=== PATIENT | female | born 1955 | race Two or more races ===

== ENCOUNTER → 2024-10-03 | Outpatient (CLI) | payer OTHER, MEDICAID, SELFPAY ==
--- NOTE | 2024-10-03 14:39 | EKG_ITS ---
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
[2024-10-03 16:02] VITALS: BMI 36.8
[2024-10-03 17:30] LABS: Basophils # (Auto) 0.1 Thou/mm3 (0.0-0.2); Basophils % (Auto) 1 % (0-2.5); Eosinophils # (Auto) 0.4 Thou/mm3 (0.0-0.5); Eosinophils % (Auto) 3 % (0-10); Hematocrit 36.8 % (36.0-46.0); Hemoglobin 10.9 g/dL (12.0-16.0); Immature Granulocytes % (Auto) 1 % (0-0); Immature Granulocytes Auto 0.06 Thou/mm3 (0.00-0.00); Lymphocytes # (Auto) 1.9 Thou/mm3 (1.0-4.8); Lymphocytes % (Auto) 15 % (10-50); Mean Corpuscular HGB Conc 29.6 g/dl (31.0-37.0); Mean Corpuscular Hemoglobin 23.6 pg (25.0-35.0); Mean Corpuscular Volume 80 fL (80-100); Monocytes # (Auto) 1.2 Thou/mm3 (0.0-0.8); Monocytes % (Auto) 10 % (0-12); Neutrophils # (Auto) 9.3 Thou/mm3 (1.8-7.7); Neutrophils % (Auto) 72 % (37-80); Nucleated Red Blood Cell % 0 /100 WBC (0); Platelet Count 362 Thou/mm3 (140-440); RDW Standard Deviation 47.5 fL (36.4-46.3); Red Blood Count 4.61 Miln/mm3 (4.00-5.20)
[2024-10-03 17:36] LABS: Partial Thromboplastin Time 34.7 Seconds (22.0-36.0); Prothrombin Time 10.9 Seconds (9.0-12.2)
[2024-10-03 17:51] LABS: Anion Gap 9 (7-16); BUN/Creatinine Ratio 21 Ratio (12-20); Blood Urea Nitrogen 40 mg/dL (9-23); Calcium 8.8 mg/dL (8.3-10.6); Carbon Dioxide 24.5 mMol/L (20.0-31.0); Chloride 105 mMol/L (98-107); Creatinine (Component) 1.9 mg/dL (0.6-1.3); Estimated Creatinine Clearance 32.3 mL/min (>60); Glucose 122 mg/dL (74-106); Osmolality,Calculated 286 (275-295); Potassium 4.4 mMol/L (3.4-5.1); Sodium 138 mMol/L (136-145); eGFR 28 See Note
== END | disposition home or self-care (01) ==
LOC: SLAB 10-09 06:59
PROVIDERS: PCP Internal Medicine; Referring Provider Internal Medicine Cardiovascular Disease; Visit Provider Internal Medicine Cardiovascular Disease
DX: I25.10 Atherosclerotic heart disease of native coronary artery without angina pectoris (principal)
CPT/HCPCS: 36415; 80048; 85025; 85610; 85730; 93005

== ENCOUNTER 2024-10-04 15:22 | Emergency (ER) | payer OTHER, MEDICAID, SELFPAY ==
[2024-10-04 15:22] VITALS: BMI 37.4
[2024-10-04 15:37] VITALS: BP 167/77; PULSE 81; RESP 19; TEMP 36.8; O2SAT 95; BMI 37.1
--- NOTE | 2024-10-04 15:42 | PD.EDURI ---
Upper Respiratory Inf. RME/HPI General Chief Complaint: Flu Like Symptoms Stated Complaint: FLU SYMPTOMS FOR 4 DAYS Time Seen by Provider: 10/04/24 15:35 Arrival date/time: 10/04/24 15:22 This is a 69-year-old female that comes in with complaints of bodyaches, cough, sore throat, headache, bilateral ears feel sore, and subjective fevers for 3 days. Patient has a history of diabetes, for thyroidism and history of pacemaker placement in the past. Patient reports a productive cough. Related Data Home Medications ?Medication ?Instructions ?Recorded ?Confirmed glipizide 10 mg tablet 10 mg PO BID ##0 12/07/15 05/02/23 nitroglycerin 0.4 mg sublingual 0.4 mg buccal PRN PRN Chest Pain 07/18/21 05/02/23 tablet dapagliflozin propanediol 5 mg 5 mg PO QDAY 04/29/22 05/02/23 tablet (Farxiga) levothyroxine 112 mcg tablet 112 mcg PO QDAY 11/22/22 05/02/23 mirabegron 25 mg tablet,extended 25 mg PO QDAY PRN prn 11/22/22 05/02/23 release 24 hr (Myrbetriq) semaglutide 0.25 mg or 0.5 mg (2 0.5 mg subcut QWEEK 11/22/22 05/02/23 mg/1.5 mL) subcutaneous pen injector (Ozempic) ticagrelor 90 mg tablet (Brilinta) 90 mg PO BID 11/22/22 05/02/23 metformin 1,000 mg tablet 1,000 mg PO BID 05/02/23 05/02/23 sertraline 50 mg tablet 50 mg PO HS 05/02/23 05/02/23 Previous Rx's ?Medication ?Instructions ?Recorded furosemide 20 mg tablet 20 mg PO QDAY #30 tabs 11/25/22 sacubitril 24 mg-valsartan 26 mg 1 tab PO BID #60 tabs 11/25/22 tablet (Entresto) albuterol sulfate 90 mcg/actuation 2 puff inhalation QID #8.5 grams 10/04/24 aerosol inhaler amoxicillin 875 mg-potassium 1 tab PO BID 7 days #14 tabs 10/04/24 clavulanate 125 mg tablet Allergies Allergy/AdvReac Type Severity Reaction Status Date / Time azithromycin Allergy Severe Anaphylaxis Verified 05/02/23 11:21 codeine Allergy Severe HALLUCINATI Verified 10/04/24 15:25 ON hydrocodone Allergy Severe NAUSEA Verified 10/04/24 15:25 morphine Allergy Severe Hallucinati Verified 10/04/24 15:25 ng Review of Systems Review of Systems Systems Reviewed: All systems reviewed, normal except as documented Past Medical History Past Medical History NEUROLOGIC: Negative Neurological Disorders or Seizures CARDIAC: Positive Cardiac Disorders, Cardiac Arrhythmia (BBB), Hypercholesterolemia, Edema, Hypertension and Varicose Veins; Negative Congestive Heart Failure RESPIRATORY: Positive Asthma; Negative Chronic Obstructive Pulmonary Disease (COPD) GASTROINTESTINAL: Positive Gastrointestinal Disorders, Diverticulitis, Hemorrhoids and Obesity GENITOURINARY: Positive Genitourinary Disorders (URINARY INCONTINENCE); Negative Renal Disease REPRODUCTIVE: Positive Previous Pregnancies MUSCULOSKELETAL: Positive Musculoskeletal Disorders and Arthritis ENT: Positive Cataracts (BILATERAL) ENDOCRINE: Positive Endocrine Disorders, Diabetes Mellitus Type 2 and Hypothyroidism; Negative Diabetes Mellitus Type 1 HEMATOLOGIC: Negative Blood Disorders, Anemia or Clotting Problems OTHER HISTORY: Positive Falls, Chicken Pox, Measles and Mumps; Negative Hospitalization, Autoimmune Disease, Shingles, Blood Transfusions, Blood Transfusion Reaction, Anesthesia Reactions, Organ Transplant, Chemotherapy, Radiation Therapy, MRSA or Cancer Family History FAMILY HISTORY: Positive Family Cardiac Disorders (PARENTS- HTN), Family Gastrointestinal Problems (BROTHER - LIVER), Family Cancer (MOTHER- LYMPHOMA) and Family Surgery; Negative Family Psychiatric Problems, Family Respiratory Disorders or Family Anesthesia Reaction Surgical History SURGICAL: Positive Cardiac Surgery, Cardiac Catheterization (2 CARDIAC STENTS), Pacemaker, Angiogram, Endocrine Surgery, Thyroidectomy (PARTIAL), Abdominal Surgery, Tubal Ligation and Section; Negative Ear Surgery or Organ Transplant Social History SMOKING STATUS: Never smoker SECOND HAND EXPOSURE: No ED Exam General General appearance: Present alert and in no apparent distress Head Head exam: Present atraumatic Eye Eye exam: Present normal appearance, PERRL and EOMI ENT ENT exam: Present normal exam, normal oropharynx and mucous membranes moist Neck Neck exam: Present normal inspection, full ROM and trachea midline Chest Chest inspection: Present normal inspection and symmetric chest wall rise Respiratory Respiratory exam: Present other (expiratory wheezing posteriorly mild ) Cardiovascular Cardiovascular exam: Present regular rate, normal rhythm and normal heart sounds Abdominal Exam Abdominal exam: Present soft Extremities Exam Extremities exam: Present normal inspection and full ROM Back Exam Back exam: Present normal inspection and full ROM Neurological Exam Neurological exam: Present alert, oriented X3 and CN II-XII intact Psychiatric Psychiatric exam: Present normal affect and normal mood Skin Skin exam: Present warm, dry, intact and normal color Course Quality Measures none Orders Category Date Time Status Bedside COVID-19 Antigen Test NOW Care 10/04/24 15:42 Completed Bedside Influenza A&B Antigen Test NOW Care 10/04/24 15:42 Completed XR chest 2V Stat Exams 10/04/24 15:43 Completed ALBUTEROL RT 0.5ml [Proventil Rt 0.5ml] Med 10/04/24 15:43 Discontinued 2.5 mg INH X1 ONE Ibuprofen Tab [Motrin Tab] Med 10/04/24 17:03 Discontinued 800 mg PO X1 ONE Sodium Chloride Rt Elida 0.9% [NS Rt Elida 0.9%] Med 10/04/24 15:43 Discontinued 3 ml INH PRN PRN cefTRIAXone [Rocephin] 1,000 mg Med 10/04/24 16:56 Discontinued Lidocaine 1% 20 ml [Xylocaine 1% 20 ML] 2.1 ml IM X1 Vital Signs Vital signs: Vital Signs Temperature 98.2 F 10/04/24 15:37 Pulse Rate 81 10/04/24 15:37 Respiratory Rate 19 10/04/24 15:37 Blood Pressure 167/77 H 10/04/24 15:37 Pulse Oximetry (%) 95 10/04/24 15:37 Oxygen Delivery Method Room Air 10/04/24 15:37 Upper Respiratory Infection MDM Narrative MDM Narrative:: chest x ray shows: Findings: Mild CHF Moderate enlargement cardiac contour Prominent vascular congestion including central vascular engorgement Early perihilar basilar edema Cardiac leads satisfactory position Impression: Mild CHF Patient given a breathing tx of albuterol and ibuprofen. Pt feel better. Covid and influenza negative Patient data External records reviewed:: [facility] previous records Clinical information provided by:: patient Social determinants that could affect healthcare access:: none Patient has the following chronic illnesses:: see note How is presenting disease/condition affected by chronic disease/condition?: uneffected by Evaluation data The following diagnostics were reviewed and interpreted by me:: lab results and radiology exam(s) Lab and/or radiology exams considered but not ordered:: none Interpretation Summary: see note Medications / Prescriptions Medications or Prescriptions considered but not ordered:: none Medication administrations:: Medication Administration History Discontinued Medications Albuterol (Albuterol Rt 2.5 Mg/0.5 Ml Nebu) 2.5 mg INH X1 ONE Stop: 10/04/24 15:44 Last Admin: 10/04/24 16:12 Dose: 2.5 mg Documented By: MR Ceftriaxone Sodium 1,000 mg/ (Lidocaine HCl 2.1 ml) 0 mg IM X1 ONE Stop: 10/04/24 16:57 Last Admin: 10/04/24 17:24 Dose: 1,000 mg Documented By: Ibuprofen (Ibuprofen Tab 400 Mg Tablet) 800 mg PO X1 ONE Stop: 10/04/24 17:04 Last Admin: 10/04/24 17:24 Dose: 800 mg Documented By: Sodium Chloride (Sodium Chloride Rt Elida 0.9% 3 Ml Nebu) 3 ml INH PRN PRN PRN Reason: SOLN Stop: 11/03/24 15:42 Last Admin: 10/04/24 16:12 Dose: 3 ml Documented By: MR prema monsalve Consultations Consultation(s) initiated? (list below): No Diagnosis Upper Respiratory Differential Diagnosis: upper respiratory infection, viral infection, bronchitis, influenza and other (pneumonia) Most likely diagnosis given after review of the tests above:: bronchitis Admission Indicated Admission indicated?: not indicated Admission Request Was there a request for admission?: No Disposition Plan Disposition Plan: Discharge Discharge Attestation Discharge Attestation: The patient and all family members were given an opportunity to ask questions and understood the discharge instructions. Discharge instructions specifically effects, indications for sooner follow up or return to the emergency department, and the expected course of current diagnosis. Patient condition: Stable Discharge Plan Plan Patient Disposition: HOME (Self Care) Patient condition on transfer: Stable Prescriptions/Referrals Prescriptions/Med Rec: New amoxicillin-pot clavulanate 875-125 mg tablet 1 tab PO BID 7 Days Qty: 14 0RF albuterol sulfate 90 mcg/actuation HFA aerosol inhaler 2 puff inhalation QID Qty: 8.5 0RF No Action glipizide 10 MG tablet 10 mg PO BID Qty: 0 nitroglycerin 0.4 mg Tablet, Sublingual 0.4 mg buccal PRN PRN (Reason: Chest Pain) Farxiga 5 mg Tablet 5 mg PO QDAY levothyroxine 112 mcg tablet 112 mcg PO QDAY Patient Comments: TAKE 1 TABLET BY MOUTH EVERY DAY Brilinta 90 mg Tablet 90 mg PO BID Myrbetriq 25 mg Tablet Extended Release 24 Hr 25 mg PO QDAY PRN (Reason: prn) Ozempic 0.25 mg or 0.5 mg(2 mg/1.5 mL) pen injector 0.5 mg SUBCUT QWEEK Patient Comments: INJECT 0.5MG SUBCUTANEOUSLY ONCE A WEEK Rx Instructions: sundays Entresto 24-26 mg Tablet 1 tab PO BID Qty: 60 0RF furosemide 20 mg tablet 20 mg PO QDAY Qty: 30 0RF metformin 1,000 mg tablet 1,000 mg PO BID Patient Comments: TAKE 1 TABLET BY MOUTH TWICE A DAY sertraline 50 mg tablet 50 mg PO HS Patient Comments: TAKE 1 TABLET BY MOUTH EVERY DAY AT BEDTIME FOR ANXIETY Problem List Clinical Impression: RAD (reactive airway disease), Acute bronchitis Patient/Caregiver Discharge Instructions Discharge Activity: activity as tolerated Education Materials: Acute Bronchitis, ED Inhaler Use Additional Instructions: Follow-up with primary provider in 1 to 2 days. Come back to the emergency room if symptoms change or worsen. Print Language: Upper Sorbian Stand Alone Forms: Radha Award Info., Patient Portal Info Letter PA/MACHINE SHOP REPAIR TECHNICIAN Supervising Physician PA/MACHINE SHOP REPAIR TECHNICIAN Supervising Physician: patrick
--- NOTE | 2024-10-04 15:43 | XR_ITS ---
Examination: PA lateral chest 2 views Technique: Upright PA lateral chest 2 views Exam date and time: September 26, 2024 1554 hrs. Comparison November 25, 2022 Indications: Coughing flulike symptoms beginning 4 days ago. Findings: Mild CHF Moderate enlargement cardiac contour Prominent vascular congestion including central vascular engorgement Early perihilar basilar edema Cardiac leads satisfactory position Impression: Mild CHF
[2024-10-04 16:12] VITALS: PULSE 98
[2024-10-04] MEDS: ALBUTEROL RT 2.5 MG/0.5 ML NEBU INH (16:12)
[2024-10-04] MEDS: SODIUM CHLORIDE RT SOL 0.9% 3 ML NEBU INH (16:12)
[2024-10-04 16:15] VITALS: PULSE 98; RESP 16; O2SAT 99
[2024-10-04] MEDS: cefTRIAXone 1,000 MG, LIDOCAINE 1% 20 ML 2.1 ML IM (17:24)
[2024-10-04] MEDS: IBUPROFEN TAB 400 MG TABLET 800 MG PO (17:24)
== END 2024-10-04 17:40 | disposition home or self-care (01) ==
PROVIDERS: Emergency Provider Emergency Medicine; PCP Internal Medicine
DX: J45.909 Unspecified asthma, uncomplicated (principal); I50.9 Heart failure, unspecified; E11.9 Type 2 diabetes mellitus without complications; E03.9 Hypothyroidism, unspecified; Z95.0 Presence of cardiac pacemaker; Z79.84 Long term (current) use of oral hypoglycemic drugs; Z79.85 Long-term (current) use of injectable non-insulin antidiabetic drugs
CPT/HCPCS: 71046; 87400; 87811; 94640; 96372; 99283; J0696; J3490; A9270

== ENCOUNTER 2024-11-04 06:38 | Day surgery (SDC) | payer OTHER, MEDICAID, SELFPAY ==
--- NOTE | 2024-11-03 00:01 | EKG_ITS ---
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
[2024-11-03 14:35] VITALS: BMI 54.6
[2024-11-03 15:45] LABS: Basophils % (Auto) 0 % (0-2.5); Eosinophils # (Auto) 0.5 Thou/mm3 (0.0-0.5); Eosinophils % (Auto) 5 % (0-10); Hematocrit 37.8 % (36.0-46.0); Hemoglobin 11.3 g/dL (12.0-16.0); Immature Granulocytes % (Auto) 0 % (0-0); Immature Granulocytes Auto 0.03 Thou/mm3 (0.00-0.00); Lymphocytes # (Auto) 2.5 Thou/mm3 (1.0-4.8); Lymphocytes % (Auto) 24 % (10-50); Mean Corpuscular HGB Conc 29.9 g/dl (31.0-37.0); Mean Corpuscular Hemoglobin 23.4 pg (25.0-35.0); Mean Corpuscular Volume 78 fL (80-100); Monocytes # (Auto) 1.2 Thou/mm3 (0.0-0.8); Monocytes % (Auto) 12 % (0-12); Neutrophils # (Auto) 5.9 Thou/mm3 (1.8-7.7); Neutrophils % (Auto) 58 % (37-80); Nucleated Red Blood Cell % 0 /100 WBC (0); Platelet Count 399 Thou/mm3 (140-440); RDW Standard Deviation 47.5 fL (36.4-46.3); Red Blood Count 4.83 Miln/mm3 (4.00-5.20); White Blood Count 10.2 Thou/mm3 (3.6-11.0)
[2024-11-03 15:52] LABS: Anion Gap 9 (7-16); BUN/Creatinine Ratio 23 Ratio (12-20); Blood Urea Nitrogen 37 mg/dL (9-23); Calcium 9.1 mg/dL (8.3-10.6); Carbon Dioxide 24.3 mMol/L (20.0-31.0); Chloride 107 mMol/L (98-107); Creatinine (Component) 1.6 mg/dL (0.6-1.3); Estimated Creatinine Clearance 48.4 mL/min (>60); Glucose 96 mg/dL (74-106); Osmolality,Calculated 288 (275-295); Potassium 4.8 mMol/L (3.4-5.1); Sodium 140 mMol/L (136-145); eGFR 34 See Note
[2024-11-03 15:53] LABS: Partial Thromboplastin Time 29.9 Seconds (22.0-36.0); Prothrombin Time 11.1 Seconds (9.0-12.2)
[2024-11-04] VITALS (14 sets, daily range): BP systolic 127–180; BP diastolic 63–101; PULSE 55–69; RESP 15–17; TEMP 36.7–37.1; O2SAT 93–98
--- NOTE | 2024-11-04 18:32 | ESOP_ITS ---
RE: SHUN MUÑIZ : 1955 DATE OF OPERATION: 11/04/2024 PROCEDURES PERFORMED: 1. Diagnostic left heart cardiac catheterization, selective coronary angiogram, left ventricular angiogram, CPT 79195. 2. PCI, PTCA stent placement of proximal left anterior descending artery, placement of 2.75 x 18 mm drug-eluting stent Xience, preprocedure stenosis 99%, postprocedure stenosis 0%, CPT 55593. 3. Conscious sedation 1 hour duration. 4. Ultrasound-guided access, right femoral artery and attempted access, right radial artery. 5. Ileofemoral angiogram followed by AngioSeal deployment. DIAGNOSES: Shortness of breath, crescendo angina pectoris, abnormal nuclear stress test, known coronary artery disease with stent placement, and congestive heart failure. HISTORY AND INDICATIONS: The patient is a 69-year-old with past medical history of coronary artery disease, status post stent placement in 2020, hypertension, diabetes mellitus, chronic kidney disease stage II, and history of pacemaker implantation, who has been hospitalized in 2022 with heart failure, pneumonia, and elevated troponin levels. At that time, she was positive for COVID. She continued to have shortness of breath, chest pressure and tightness. Cardiac echo was abnormal and showed ejection fraction of 40%. Nuclear scan showed evidence of ischemia. Hence, coronary angiogram was recommended. The patient is a candidate for coronary intervention and revascularization. DESCRIPTION OF PROCEDURE: The patient was brought to cardiac catheterization laboratory. She was given conscious sedation of 2 mg of Versed and 100 mcg of fentanyl for sedation. Right radial approach was initially taken. Right radial artery was cannulated by micropuncture technique and I was unable to advance 5-Eritrean sheath because of heavy calcification. We switched to femoral approach. Right femoral artery was cannulated by micropuncture technique. A 5- [place] sheath was introduced. Selective diagnostic right and left carotid angiogram, left heart catheterization, and LV angiogram were performed by FR4 and FL4 diagnostic catheter. Subsequently, intervention was undertaken. Diagnostic procedure showed following findings: 1. Right coronary artery is small and nondominant, gives off RV branches, showed 95% stenosis. 2. Left coronary system: Left main coronary artery is normal. Left anterior descending artery showed evidence of a stent in the proximal segment with 99% subtotal occlusion, ERENDIRA 2 flow. 3. Large ramus intermedius and diagonal branch showed a stent, which is widely patent. 4. Circumflex artery is nondominant and appears normal significant stenosis. Left heart catheterization showed following findings: Left ventricular pressure is recorded to be 180, EDP is 22, aortic pressure 180 systolic, 80 diastolic. Left ventricular angiogram showed moderate global hypokinesis, ejection fraction of 30%. Following diagnostic intervention undertaken. Left anterior descending artery lesion was complex, had subtotal occlusion with in-stent restenosis and complexity. Hence, PCI was recommended. The patient was given total of 9000 units of heparin, ACT therapeutic. Aspirin and Plavix loading dose were given. Right femoral sheath was changed to 6-Eritrean sheath. A 6-Eritrean FL4 guiding catheter was used to cannulate left main coronary artery, A 0.014 Runthrough wire could not cross and use the Oil Expert 50 guidewire to cross the lesion successfully using a microcatheter support, subsequently exchanged to 300 cm wire. Balloon angioplasty was performed using 2.5 x 15 mm angioplasty balloon catheter. Subsequently, a 2.75 x 18 mm drug-eluting Xience stent was deployed successfully. Two incisions were performed after excellent angiographic results and ERENDIRA 3 flow. Final angiogram showed widely patent stent and excellent result. Ileofemoral angiogram was performed and subsequent AngioSeal was deployed successfully. The patient tolerated the procedure well. No complications. TR band was applied to the right radial artery. FINAL SUMMARY: Multivessel coronary artery disease, underwent successful stent placement of the proximal left anterior descending artery with in-stent restenosis, 99% stenosis preprocedure, 0% postprocedure stenosis. ERENDIRA flow preprocedure is 2, postprocedure is 3. The patient also had nondominant right carotid artery with 90% stenosis. If she has significant chest pain, we will consider angioplasty and stent placement at a later date. AngioSeal was deployed successfully and patient will be discharged home in 4 hours. DT: 16:55:52 TT: 18:02:00 Ref: [id number] - TID: [id number] MTDD
== END 2024-11-04 14:30 | disposition home or self-care (01) ==
PROVIDERS: PCP Internal Medicine; Referring Provider Internal Medicine Cardiovascular Disease; Visit Provider Internal Medicine Cardiovascular Disease
PROC: (CPT 93458; principal; 2024-11-04 07:30)
DX: T82.855A Stenosis of coronary artery stent, initial encounter (principal); I25.118 Atherosclerotic heart disease of native coronary artery with other forms of angina pectoris; E11.22 Type 2 diabetes mellitus with diabetic chronic kidney disease; I13.0 Hypertensive heart and chronic kidney disease with heart failure and stage 1 through stage 4 chronic kidney disease, or unspecified chronic kidney disease; I50.9 Heart failure, unspecified; N18.2 Chronic kidney disease, stage 2 (mild); Z95.0 Presence of cardiac pacemaker; Z01.810 Encounter for preprocedural cardiovascular examination
CPT/HCPCS: 93458; C9600; G0278; 36415; 80048; 85025; 85347; 85610; 85730; 93005; 99152; 99153; A4649; C1725; C1760; C1769; C1874; C1887; C1894; J0171; J0360; J0461; J1643; J2250; J2310; J2371; J3010; J3490; Q9967; A9270; J2305

== ENCOUNTER → 2024-11-18 | Outpatient (CLI) | payer OTHER, MEDICAID, SELFPAY ==
[2024-11-18 12:28] LABS: Collection Type, Urine Clean Catch
[2024-11-18 13:00] LABS: Basophils # (Auto) 0.1 Thou/mm3 (0.0-0.2); Basophils % (Auto) 1 % (0-2.5); Eosinophils # (Auto) 0.4 Thou/mm3 (0.0-0.5); Eosinophils % (Auto) 5 % (0-10); Hematocrit 39.2 % (36.0-46.0); Hemoglobin 11.7 g/dL (12.0-16.0); Immature Granulocytes % (Auto) 0 % (0-0); Immature Granulocytes Auto 0.02 Thou/mm3 (0.00-0.00); Lymphocytes # (Auto) 1.9 Thou/mm3 (1.0-4.8); Lymphocytes % (Auto) 21 % (10-50); Mean Corpuscular HGB Conc 29.8 g/dl (31.0-37.0); Mean Corpuscular Hemoglobin 23.3 pg (25.0-35.0); Mean Corpuscular Volume 78 fL (80-100); Monocytes # (Auto) 0.8 Thou/mm3 (0.0-0.8); Monocytes % (Auto) 10 % (0-12); Neutrophils # (Auto) 5.5 Thou/mm3 (1.8-7.7); Neutrophils % (Auto) 64 % (37-80); Nucleated Red Blood Cell % 0 /100 WBC (0); Platelet Count 379 Thou/mm3 (140-440); Red Blood Count 5.02 Miln/mm3 (4.00-5.20); White Blood Count 8.7 Thou/mm3 (3.6-11.0)
[2024-11-18 13:03] LABS: Bilirubin,Urine Negative (Negative); Blood,Urine Trace (Negative); Clarity,Urine Clear (Clear/Hazy); Color,Urine Lt-Yellow (Lt Yel-Yel); Glucose, Urine 4+ (Negative); Ketones,Urine Negative (Negative); Leukocyte Esterase,Urine Positive (Negative); Nitrite,Urine Negative (Negative); Protein,Urine 2+ (Neg - Trace); RBC,Urine 4 /hpf (0-3); Specific Gravity,Urine 1.014 (1.001-1.035); Squamous Epithelial Cell,Urine 3 /hpf (0-5); Urobilinogen,Urine Negative mg/dL (0.0-1.0); WBC,Urine 4 /hpf (0-5)
[2024-11-18 13:06] LABS: Glucose Estimated Average 163 mg/dL (80-131); Hemoglobin A1C 7.3 % Hgb (4.8-6.0)
[2024-11-18 13:19] LABS: Creatinine MALB Rnd Ur 45 mg/dL (30-125)
[2024-11-18 13:20] LABS: Parathyroid Hormone Intact 56.6 pg/ml (18.5-88.0)
[2024-11-18 13:28] LABS: Alanine Aminotransferase 11 U/L (10-49); Albumin, Serum 4.3 gm/dL (3.4-4.8); Albumin/Globulin Ratio 1.6 (1.2-2.2); Alkaline Phosphatase 90 U/L (46-116); Anion Gap 7 (7-16); Aspartate Amino Transferase 15 U/L (0-34); BUN/Creatinine Ratio 25 Ratio (12-20); Bilirubin,Total 0.3 mg/dL (0.3-1.2); Blood Urea Nitrogen 38 mg/dL (9-23); Calcium 9.8 mg/dL (8.3-10.6); Calcium (Corrected) 9.8 mg/dL (8.5-10.1); Carbon Dioxide 25.8 mMol/L (20.0-31.0); Cardiac Risk Estimate 3.9 RATIO (3.7-5.6); Chloride 108 mMol/L (98-107); Cholesterol 190 mg/dL (132-200); Creatinine (Component) 1.5 mg/dL (0.6-1.3); Globulin 2.7 gm/dL (2.3-3.5); Glucose 115 mg/dL (74-106); HDL Cholesterol 49 mg/dL (40-60); LDL Cholesterol,Calculated 100 mg/dL (0-130); Osmolality,Calculated 291 (275-295); Potassium 5.6 mMol/L (3.4-5.1); Sodium 141 mMol/L (136-145); Thyroid Stimulating Hormone 7.11 uIU/mL (0.55-4.78); Triglycerides 204 mg/dL (30-150); eGFR 37 See Note
[2024-11-18 13:45] LABS: Microalbumin Creat Ratio 2724 mg/gCrea (<30); Microalbumin, Random Urine 1226 mg/L (0-300)
== END | disposition home or self-care (01) ==
PROVIDERS: PCP Internal Medicine; Referring Provider Internal Medicine; Visit Provider Internal Medicine
DX: I12.9 Hypertensive chronic kidney disease with stage 1 through stage 4 chronic kidney disease, or unspecified chronic kidney disease (principal); E11.22 Type 2 diabetes mellitus with diabetic chronic kidney disease; N18.30 Chronic kidney disease, stage 3 unspecified; E78.5 Hyperlipidemia, unspecified
CPT/HCPCS: 36415; 80053; 80061; 81001; 82043; 82570; 83036; 83970; 84443; 85025

== ENCOUNTER → 2025-06-01 | Outpatient (CLI) | payer MEDICARE, MEDICAID, SELFPAY ==
[2025-06-01 11:06] LABS: Collection Type, Urine Clean Catch
[2025-06-01 11:26] LABS: Parathyroid Hormone Intact 98.2 pg/ml (18.5-88.0)
[2025-06-01 11:41] LABS: Alanine Aminotransferase 9 U/L (10-49); Albumin, Serum 4.3 gm/dL (3.4-4.8); Albumin/Globulin Ratio 1.6 (1.2-2.2); Alkaline Phosphatase 79 U/L (46-116); Anion Gap 10 (7-16); Aspartate Amino Transferase 12 U/L (0-34); BUN/Creatinine Ratio 21 Ratio (12-20); Bilirubin,Total 0.2 mg/dL (0.3-1.2); Blood Urea Nitrogen 36 mg/dL (9-23); Calcium 9.7 mg/dL (8.3-10.6); Calcium (Corrected) 9.7 mg/dL (8.5-10.1); Carbon Dioxide 22.8 mMol/L (20.0-31.0); Cardiac Risk Estimate 4.5 RATIO (3.7-5.6); Chloride 109 mMol/L (98-107); Cholesterol 171 mg/dL (132-200); Creatinine (Component) 1.7 mg/dL (0.6-1.3); Globulin 2.7 gm/dL (2.3-3.5); Glucose 126 mg/dL (74-106); HDL Cholesterol 38 mg/dL (40-60); LDL Cholesterol,Calculated 82 mg/dL (0-130); Osmolality,Calculated 293 (275-295); Potassium 5.3 mMol/L (3.4-5.1); Sodium 142 mMol/L (136-145); Thyroid Stimulating Hormone 3.05 uIU/mL (0.55-4.78); Total Protein 7.0 gm/dL (5.7-8.2); Triglycerides 256 mg/dL (30-150); eGFR 32 See Note
[2025-06-01 11:46] LABS: Glucose Estimated Average 169 mg/dL (80-131); Hemoglobin A1C 7.5 % Hgb (4.8-6.0)
[2025-06-01 12:20] LABS: Creatinine MALB Rnd Ur 57 mg/dL (30-125)
[2025-06-01 12:34] LABS: Microalbumin Creat Ratio 1630 mg/gCrea (<30); Microalbumin, Random Urine 929 mg/L (0-300)
[2025-06-01 13:21] LABS: Bilirubin,Urine Negative (Negative); Blood,Urine 1+ (Negative); Budding Yeast,Urine Present; Clarity,Urine Turbid (Clear/Hazy); Color,Urine Lt-Yellow (Lt Yel-Yel); Glucose, Urine 4+ (Negative); Ketones,Urine Negative (Negative); Leukocyte Esterase,Urine Positive (Negative); Nitrite,Urine Negative (Negative); PH,Urine 6.0 (5.0-7.0); Protein,Urine 2+ (Neg - Trace); RBC,Urine 5 /hpf (0-3); Specific Gravity,Urine 1.014 (1.001-1.035); Squamous Epithelial Cell,Urine 1 /hpf (0-5); Urobilinogen,Urine Negative mg/dL (0.0-1.0); WBC,Urine 382 /hpf (0-5)
== END | disposition home or self-care (01) ==
LOC: COPL 10:15
PROVIDERS: PCP Internal Medicine; Referring Provider Internal Medicine; Visit Provider Internal Medicine
DX: I12.9 Hypertensive chronic kidney disease with stage 1 through stage 4 chronic kidney disease, or unspecified chronic kidney disease (principal); E11.29 Type 2 diabetes mellitus with other diabetic kidney complication; N18.30 Chronic kidney disease, stage 3 unspecified; E78.5 Hyperlipidemia, unspecified
CPT/HCPCS: 36415; 80053; 80061; 81001; 82043; 82570; 83036; 83970; 84443

== ENCOUNTER → 2025-08-04 | Outpatient (CLI) | payer MEDICARE, MEDICAID, SELFPAY ==
--- NOTE | 2025-08-04 13:39 | XR_ITS ---
EXAMINATION: Bilateral wrist 6 views TECHNIQUE: AP oblique lateral each wrist total 6 views Date and time: August 04, 2025, 1416 hours INDICATIONS: Bilateral wrist pain beginning 3 weeks ago. FINDINGS: Moderate osteopenia Significant osteoarthritis and narrowing navicular trapezium and first carpometacarpal joints bilaterally No fractures Soft tissue vascular calcification No avascular necrosis IMPRESSION: Significant osteoarthritis navicular trapezium and first carpometacarpal joints bilaterally
== END | disposition home or self-care (01) ==
PROVIDERS: PCP Internal Medicine; Referring Provider Internal Medicine; Visit Provider Internal Medicine
DX: M18.0 Bilateral primary osteoarthritis of first carpometacarpal joints (principal); M19.032 Primary osteoarthritis, left wrist; M19.031 Primary osteoarthritis, right wrist
CPT/HCPCS: 73110

== ENCOUNTER → 2025-09-14 | Outpatient (CLI) | payer MEDICARE, MEDICAID, SELFPAY ==
[2025-09-14 11:52] LABS: Collection Type, Urine Clean Catch
[2025-09-14 12:29] LABS: Basophils # (Auto) 0.1 Thou/mm3 (0.0-0.2); Basophils % (Auto) 1 % (0-2.5); Eosinophils # (Auto) 0.4 Thou/mm3 (0.0-0.5); Eosinophils % (Auto) 4 % (0-10); Hematocrit 44.4 % (36.0-46.0); Hemoglobin 13.7 g/dL (12.0-16.0); Immature Granulocytes Auto 0.02 Thou/mm3 (0.00-0.00); Lymphocytes # (Auto) 1.7 Thou/mm3 (1.0-4.8); Lymphocytes % (Auto) 18 % (10-50); Mean Corpuscular HGB Conc 30.9 g/dl (31.0-37.0); Mean Corpuscular Hemoglobin 25.3 pg (25.0-35.0); Mean Corpuscular Volume 82 fL (80-100); Monocytes # (Auto) 0.7 Thou/mm3 (0.0-0.8); Monocytes % (Auto) 8 % (0-12); Neutrophils # (Auto) 6.5 Thou/mm3 (1.8-7.7); Neutrophils % (Auto) 69 % (37-80); Nucleated Red Blood Cell # 0.00 Thou/mm3 (0.00-0.00); Nucleated Red Blood Cell % 0 /100 WBC (0); Platelet Count 307 Thou/mm3 (140-440); RDW Standard Deviation 50.3 fL (36.4-46.3); Red Blood Count 5.41 Miln/mm3 (4.00-5.20); White Blood Count 9.3 Thou/mm3 (3.6-11.0)
[2025-09-14 12:34] LABS: Parathyroid Hormone Intact 48.7 pg/ml (18.5-88.0)
[2025-09-14 12:38] LABS: Creatinine MALB Rnd Ur 51 mg/dL (30-125)
[2025-09-14 12:50] LABS: Alanine Aminotransferase 9 U/L (10-49); Albumin, Serum 4.6 gm/dL (3.4-4.8); Albumin/Globulin Ratio 1.4 (1.2-2.2); Alkaline Phosphatase 96 U/L (46-116); Anion Gap 11 (7-16); Aspartate Amino Transferase 13 U/L (0-34); BUN/Creatinine Ratio 23 Ratio (12-20); Bilirubin,Total 0.2 mg/dL (0.3-1.2); Blood Urea Nitrogen 46 mg/dL (9-23); Calcium 9.6 mg/dL (8.3-10.6); Calcium (Corrected) 9.6 mg/dL (8.5-10.1); Carbon Dioxide 25.2 mMol/L (20.0-31.0); Cardiac Risk Estimate 5.6 RATIO (3.7-5.6); Chloride 106 mMol/L (98-107); Cholesterol 316 mg/dL (132-200); Creatinine (Component) 2.0 mg/dL (0.6-1.3); Globulin 3.3 gm/dL (2.3-3.5); Glucose 181 mg/dL (74-106); HDL Cholesterol 56 mg/dL (40-60); LDL Cholesterol,Calculated 201 mg/dL (0-130); Osmolality,Calculated 300 (275-295); Potassium 5.2 mMol/L (3.4-5.1); Sodium 142 mMol/L (136-145); Thyroid Stimulating Hormone 6.00 uIU/mL (0.55-4.78); Total Protein 7.9 gm/dL (5.7-8.2); Triglycerides 297 mg/dL (30-150); eGFR 26 See Note
[2025-09-14 12:52] LABS: Microalbumin Creat Ratio 2412 mg/gCrea (<30); Microalbumin, Random Urine 1230 mg/L (0-300)
[2025-09-14 12:53] LABS: Bacteria,Urine Rare; Bilirubin,Urine Negative (Negative); Blood,Urine Trace (Negative); Budding Yeast,Urine Present; Color,Urine Lt-Yellow (Lt Yel-Yel); Glucose, Urine 4+ (Negative); Ketones,Urine Negative (Negative); Leukocyte Esterase,Urine Positive (Negative); Nitrite,Urine Negative (Negative); PH,Urine 6.0 (5.0-7.0); Protein,Urine 2+ (Neg - Trace); RBC,Urine 7 /hpf (0-3); Specific Gravity,Urine 1.017 (1.001-1.035); Squamous Epithelial Cell,Urine 3 /hpf (0-5); Urobilinogen,Urine Negative mg/dL (0.0-1.0); WBC,Urine 22 /hpf (0-5)
[2025-09-14 12:59] LABS: Clarity,Urine Hazy (Clear/Hazy)
[2025-09-14 13:04] LABS: Glucose Estimated Average 197 mg/dL (80-131); Hemoglobin A1C 8.5 % Hgb (4.8-6.0)
== END | disposition home or self-care (01) ==
LOC: COPL 10:51
PROVIDERS: PCP Internal Medicine; Referring Provider Internal Medicine; Visit Provider Internal Medicine
DX: E11.22 Type 2 diabetes mellitus with diabetic chronic kidney disease (principal); I12.9 Hypertensive chronic kidney disease with stage 1 through stage 4 chronic kidney disease, or unspecified chronic kidney disease; N18.30 Chronic kidney disease, stage 3 unspecified; E78.5 Hyperlipidemia, unspecified
CPT/HCPCS: 36415; 80053; 80061; 81001; 82043; 82570; 83036; 83970; 84443; 85025